=== PATIENT | male | born 1955 | race Caucasian/White ===

== ENCOUNTER 2018-08-24 12:47 | Inpatient (IN) | payer MEDICAID | END 2018-09-23 17:00 | disposition other institution (70) | LOC: DOU IN ICU 08-30 12:00 → CENTRAL 09-11 09:49 → ER 12:47 → TELE-CENTR 09-09 15:30 → TELE 15:39 → TELE-WESTW 17:46 | PROC: 0B9G8ZZ Drainage of Left Upper Lung Lobe, Via Natural or Artificial Opening Endoscopic (ICD-10-PCS; principal; 2018-09-06 13:15) | DX: A41.9 Sepsis, unspecified organism (principal); I21.4 Non-ST elevation (NSTEMI) myocardial infarction; E43 Unspecified severe protein-calorie malnutrition; J96.01 Acute respiratory failure with hypoxia; N17.0 Acute kidney failure with tubular necrosis; I50.41 Acute combined systolic (congestive) and diastolic (congestive) heart failure; J15.211 Pneumonia due to Methicillin susceptible Staphylococcus aureus; J18.0 Bronchopneumonia, unspecified organism; E44.0 Moderate protein-calorie malnutrition; J18.9 Pneumonia, unspecified organism; I50.43 Acute on chronic combined systolic (congestive) and diastolic (congestive) heart failure; E87.2 Acidosis; E11.21 Type 2 diabetes mellitus with diabetic nephropathy; E87.6 Hypokalemia; R73.9 Hyperglycemia, unspecified; L40.9 Psoriasis, unspecified; E78.5 Hyperlipidemia, unspecified; D64.9 Anemia, unspecified; R74.8 Abnormal levels of other serum enzymes; E11.22 Type 2 diabetes mellitus with diabetic chronic kidney disease; E11.65 Type 2 diabetes mellitus with hyperglycemia; F17.200 Nicotine dependence, unspecified, uncomplicated; J44.0 Chronic obstructive pulmonary disease with (acute) lower respiratory infection; J44.1 Chronic obstructive pulmonary disease with (acute) exacerbation; J96.21 Acute and chronic respiratory failure with hypoxia; J98.11 Atelectasis ==

== ENCOUNTER 2021-12-22 14:46 | Emergency (ER) | payer MEDICAID ==
[~2021-12-22] VITALS: Ht 182.9 cm; Wt 99.8 kg
[2021-12-22 16:00] VITALS: BP 103/65
== END 2021-12-22 18:55 | disposition home or self-care (01) ==
LOC: ER 14:46
DX: Z04.1 Encounter for examination and observation following transport accident (principal); F10.129 Alcohol abuse with intoxication, unspecified; V43.52XA Car driver injured in collision with other type car in traffic accident, initial encounter; Y93.89 Activity, other specified; Y92.410 Unspecified street and highway as the place of occurrence of the external cause; Y99.8 Other external cause status; Y90.9 Presence of alcohol in blood, level not specified